=== PATIENT | male | born 1945 | race Caucasian/White ===

== ENCOUNTER 2016-12-06 17:41 | Emergency (ER) | payer MEDICARE, OTHER ==
--- NOTE | 2016-12-13 01:20 | ER ---
ADMIT: 12/06/2016 RM/LOC: ER [facility] MR#: [id number] [address] [id number] [place] [address] Emergency Room Report SEX: M AGE: 71 : 1945 DATE: 12/06/2016 ADDENDUM: CHIEF COMPLAINT: Fall out of wheelchair. HISTORY OF PRESENT ILLNESS: This is a 71-year-old male, who lives at [facility], fell out of his wheelchair. It was not witnessed, they did not know how he fell. Upon arrival here, he actually was hypoxic, actually quite confused. So CBC, CMP, troponin, CK, CK-MB, ABGs, CT head, CT C-spine, x-rays of the pelvis and chest, and EKG were done along with an ammonia level and CT of the chest. Overall findings, CMP is normal except for glucose of 126. Cardiac enzymes are normal. Ammonia level is 13. CBC is normal except for hemoglobin of 11.8, hematocrit 36.3. ABGs; his PO2 is 121, pCO2 is 40, pH is 7.424, and this was on 4 L of O2. EKG showed sinus rhythm. Pelvis x-ray over- read by Dr. Walton is negative for any fracture. Chest x-ray was essentially negative. CTA of his chest showed bilateral pleural effusions along with questionable PE distally on the right side. I did speak with the nurse practitioner of Dr. Braswell's, her name is Codie Velez. We discussed placing him on Xarelto, and [facility]. He is not hypoxic now. His sats are anywhere from 94% to 95% on room air. Also, he will follow up with Dr. Braswell later this week. CLINICAL IMPRESSION: 1. Fall from wheelchair, no injuries. 2. Distal right PE and bilateral pleural effusions. Again, we are placing him on Xarelto and having him follow up Dr. Braswell this week. DARIA Hong / Oscar Weller MD / anila JOB #: [id number] CC: Obey Walton MD, Attending Physician
== END 2016-12-06 20:20 | disposition home or self-care (01) ==
LOC: ER 17:41
DX: J90 Pleural effusion, not elsewhere classified (principal); I26.99 Other pulmonary embolism without acute cor pulmonale; I10 Essential (primary) hypertension; F41.9 Anxiety disorder, unspecified; F03.90 Unspecified dementia, unspecified severity, without behavioral disturbance, psychotic disturbance, mood disturbance, and anxiety; Z79.899 Other long term (current) drug therapy; Z88.8 Allergy status to other drugs, medicaments and biological substances; W05.0XXA Fall from non-moving wheelchair, initial encounter; Y92.009 Unspecified place in unspecified non-institutional (private) residence as the place of occurrence of the external cause